=== PATIENT | female | born 1990 | race Caucasian/White ===

== ENCOUNTER → 2020-10-26 | Day surgery (SDC) | payer OTHER ==
[~2020-10-26] MED LIST: AUGMENTIN 875-1 EACH PO; CLARITIN10 MG PO; IBUPROFEN800 MG PO; NEXIUM20 MG PO; OZEMPIC1 MG/0.71 INJ; SINGULAIR10 MG PO; SPIRONOLACTONE25 MG PO; VITAMIN D PO
[2020-10-26 08:43] LABS: HEMOGLOBIN 11.9 gm/dl (12.3-15.3); RED BLOOD COUNT 5.02 M/UL (4.00-5.10); WHITE BLOOD COUNT 9.8 K/UL (4.5-11.0)
[2020-10-26 08:55] LABS: BUN/CREATININE RATIO 10 (0-10)
== END | disposition home or self-care (01) ==
LOC: OR 07:53
PROVIDERS: Obstetrics & Gynecology
DX: T83.39XA Other mechanical complication of intrauterine contraceptive device, initial encounter (principal); F17.210 Nicotine dependence, cigarettes, uncomplicated; K21.9 Gastro-esophageal reflux disease without esophagitis; R73.03 Prediabetes; Z88.2 Allergy status to sulfonamides
CPT/HCPCS: 36415; 80048; 81001; 84703; 85025; 87086; J0690; J1100; J1885; J2001; J2250; J2405; J2704; J2795; J3010; J7120